=== PATIENT | male | born 1995 | race Caucasian/White ===

== ENCOUNTER 2017-02-13 17:31 | Emergency (ER) | payer BC ==
[~2017-02-13] VITALS: Ht 175.3 cm; Wt 68.0 kg
[2017-02-13 19:01] VITALS: BP 113/61
== END 2017-02-13 20:36 | disposition home or self-care (01) ==
LOC: ER 17:42
DX: S81.811A Laceration without foreign body, right lower leg, initial encounter (principal); W18.39XA Other fall on same level, initial encounter; Y93.89 Activity, other specified; Y92.89 Other specified places as the place of occurrence of the external cause; Y99.8 Other external cause status
CPT/HCPCS: 12002